=== PATIENT | female | born 1970 | race American Indian/Alaskan Native ===

== ENCOUNTER 2019-01-19 13:50 | Emergency (ER) | payer OTHER ==
[2019-01-19] MEDS ORDERED: ATIVAN IV ONE (13:56)
[2019-01-19] MEDS ORDERED: NACL 0.9% 1000 ML 1,000 ML IV ONE (13:56)
[2019-01-19] MEDS ORDERED: ZOFRAN IV ONE (13:56)
--- NOTE | 2019-01-19 14:02 | Emergency Department Report ---
ED Abdominal Pain HPI - General Stated Complaint: N/V Time Seen by Provider: 01/19/19 13:53 Source: patient, EMS - History of Present Illness Initial Comments: Ms. Tejeda is a 48-year-old female who arrived via EMS for nausea vomiting diarrhea. She did drink alcohol last night. She had copious amount of vomiting diarrhea with abdominal soreness. No significant past medical history. She uses marijuana occasionally. -: This morning Location: diffuse Severity: mild Quality: aching Consistency: constant Improves With: nothing Worsens With: vomiting Associated Symptoms: nausea, vomiting, diarrhea - Related Data Previous Rx's Medication Instructions Recorded Last Taken Type Promethazine [Phenergan] 25 mg PO Q6HR PRN #10 tab 01/19/19 Unknown Rx clonazePAM [ Klonopin] 0.5 mg PO BID PRN #5 tab 01/19/19 Unknown Rx Allergies Allergy/AdvReac Type Severity Reaction Status Date / Time No Known Allergies Allergy Unverified 01/19/19 14:01 ED Review of Systems ROS: Stated complaint: N/V Other details as noted in HPI Comment: All other systems reviewed and negative Constitutional: malaise. denies: fever Gastrointestinal: abdominal pain, nausea, vomiting, diarrhea ED Past Medical Hx - Past Medical History Previous Medical History?: Yes Hx Psychiatric Treatment: Yes (anxiety) - Surgical History Hx Cholecystectomy: Yes - Family History Family history: no significant - Social History Substance Use Type: Alcohol, Marijuana - Medications Home Medications: Home Medications Medication Instructions Recorded Confirmed Last Taken Type Promethazine [Phenergan] 25 mg PO Q6HR PRN #10 tab 01/19/19 Unknown Rx clonazePAM [ Klonopin] 0.5 mg PO BID PRN #5 tab 01/19/19 Unknown Rx ED Physical Exam - General General appearance: alert, other (actively retching) - Head Head exam: Present: atraumatic, normocephalic - Eye Eye exam: Present: normal appearance - ENT ENT exam: Present: mucous membranes moist - Neck Neck exam: Present: normal inspection, full ROM - Respiratory Respiratory exam: Present: normal lung sounds bilaterally. Absent: respiratory distress, wheezes, rales, rhonchi - Cardiovascular Cardiovascular Exam: Present: regular rate, normal rhythm, normal heart sounds. Absent: systolic murmur, diastolic murmur, rubs, gallop - GI/Abdominal GI/Abdominal exam: Present: soft, normal bowel sounds. Absent: distended, tenderness, guarding, rebound - Extremities Exam Extremities exam: Present: normal inspection - Back Exam Back exam: Present: normal inspection - Neurological Exam Neurological exam: Present: alert, oriented X3 - Psychiatric Psychiatric exam: Present: normal affect, normal mood - Skin Skin exam: Present: warm, dry, intact, pallor. Absent: rash ED Course Vital Signs 01/19/19 01/19/19 13:59 14:12 Temperature 97.4 F L Pulse Rate 74 Respiratory 16 22 Rate Blood Pressure 110/60 O2 Sat by Pulse 100 Oximetry ED Medical Decision Making - Lab Data Result diagrams: 01/19/19 13:59 01/19/19 13:59 Laboratory Results - last 72 hr 01/19/19 01/19/19 01/19/19 13:59 13:59 13:59 WBC 9.9 RBC 4.16 Hgb 11.1 Hct 33.6 MCV 81 MCH 27 L MCHC 33 RDW 20.6 H Plt Count 287 Lymph % (Auto) 9.0 L [place] % (Auto) 3.8 Eos % (Auto) 0.0 Baso % (Auto) 0.6 Lymph # 0.9 L [place] # 0.4 Eos # 0.0 Baso # 0.1 Seg Neutrophils % 86.6 H Seg Neutrophils # 8.5 H Sodium 139 Potassium 4.1 Chloride 99.8 Carbon Dioxide 23 Anion Gap 20 BUN 9 Creatinine 0.6 L Estimated GFR > 60 BUN/Creatinine Ratio 15 Glucose 121 H Calcium 8.8 Total Bilirubin 0.40 Direct Bilirubin < 0.2 Indirect Bilirubin 0.2 AST 27 ALT 21 Alkaline Phosphatase 54 Total Protein 7.1 Albumin 4.3 Albumin/Globulin Ratio 1.5 Lipase 9 L HCG, Qual Negative - Medical Decision Making Mrs. Tejeda feels much better after treatment in the ED. W/U normal upon lab review. She admitted to having a panic attack. She did admit to stress after losing her job. She has taken Wellbutrin and Klonopin in the past for anxiety. She kindly requested prescription for Klonopin. She denies suicidal ideation. Her supportive boyfriend is at the bedside to take her home. She lives in [facility]. I also provided a prescription for promethazine and 5 tablets of Klonopin Critical care attestation.: If time is entered above; I have spent that time in minutes in the direct care of this critically ill patient, excluding procedure time. ED Disposition Clinical Impression: Vomiting, Anxiety Disposition: DC-01 TO HOME OR SELFCARE Is pt being admited?: No Does the pt Need Aspirin: No Condition: Stable Instructions: Abdominal Pain (ED), Anxiety (ED) Prescriptions: clonazePAM [ Klonopin] 0.5 mg PO BID PRN #5 tab PRN Reason: Anxiety Promethazine [Phenergan] 25 mg PO Q6HR PRN #10 tab PRN Reason: Nausea [facility] [Primary Care Provider[facility] - 3-5 Days
[2019-01-19 14:19] LABS: Basophils # (Auto) 0.1 K/mm3 (0.0-0.1); Basophils % (Auto) 0.6 % (0.0-1.8); Hematocrit 33.6 % (30.3-42.9); Hemoglobin 11.1 gm/dl (10.1-14.3); Lymphocytes # (Auto) 0.9 K/mm3 (1.2-5.4); Mean Corpuscular HGB Conc 33 % (30-34); Mean Corpuscular Volume 81 fl (79-97); Monocytes # (Auto) 0.4 K/mm3 (0.0-0.8); Monocytes % (Auto) 3.8 % (0.0-7.3); Platelet Count 287 K/mm3 (140-440); Red Blood Count 4.16 M/mm3 (3.65-5.03)
[2019-01-19 14:27] LABS: Red Cell Distribution Width 20.6 % (13.2-15.2)
[2019-01-19 14:42] LABS: Alanine Aminotransferase 21 units/L (7-56); Albumin 4.3 g/dL (3.9-5); BUN/Creatinine Ratio 15; Blood Urea Nitrogen 9 mg/dL (7-17); Calcium 8.8 mg/dL (8.4-10.2); Hemolysis Index 3
[2019-01-19 14:53] LABS: Bilirubin,Direct < 0.2 mg/dL (0-0.2)
[2019-01-19 16:27] VITALS: BP 118/68
== END 2019-01-19 16:25 | disposition home or self-care (01) ==
LOC: ED 13:50
DX: R11.2 Nausea with vomiting, unspecified (principal); F41.0 Panic disorder [episodic paroxysmal anxiety]; F12.10 Cannabis abuse, uncomplicated; Z90.49 Acquired absence of other specified parts of digestive tract
CPT/HCPCS: 36415; 80048; 80076; 83690; 84703; 85025; 96361; 96374; 99284; J2060; J2405; J7030